=== PATIENT | male | born 1985 | race Hispanic/Latino ===

== ENCOUNTER 2020-03-02 03:01 | Outpatient (CLI) | payer BC, SELFPAY ==
[2020-03-02 18:16] LABS: SARS-CoV-2 RNA PCR Negative
== END 2020-03-02 03:02 | disposition home or self-care (01) ==
LOC: ANHCOVIDDT 03:01
PROVIDERS: PCP Family Medicine; Visit Provider Internal Medicine Gastroenterology
DX: Z01.812 Encounter for preprocedural laboratory examination (principal); Z20.828 Contact with and (suspected) exposure to other viral communicable diseases
CPT/HCPCS: 87635; C9803; U0003

== ENCOUNTER 2020-03-04 00:11 | Day surgery (SDC) | payer BC, SELFPAY ==
[2020-02-26 14:40] VITALS: BMI 34.7
[2020-03-04] MEDS: LACTATED RINGERS 1,000 ML 150 ML IV CONT (07:58)
--- NOTE | 2020-03-04 07:58 | P.HP_ITS ---
History of Present Illness History of Present Illness Consent: Risks, benefits, and alternatives have been discussed and questions answered. Patient agrees to proceed with procedure. Chief complaint: fm hx colon ca Narrative: Miah Palumbo is a 34 year old W male referred for screening colonoscopy secondary to family history of colon cancer in his mother was diagnosed at age 44. Patient is asymptomatic. Both grandmothers had ovarian cancer. He states that the stories aware with mother did not have genetic testing has had may be worthwhile for her to contact her doctor regards to this. His sister also had polyps. [facility] Past Medical History Medical History ADD (attention deficit disorder) without hyperactivity Aortic valve regurgitation, nonrheumatic Bradycardia Essential hypertension Hypersomnia Murmur, cardiac ADAM (obstructive sleep apnea) Surgical History Surgical History History of knee surgery Family History Family History (Updated 04/29/18 @ 12:50 by DOCTOR UNKNOWN) Father Hypertension Mother Carcinoma of colon Grandparent Carcinoma of colon Family history of Hodgkin's lymphoma Social History Social History Social History: Smoking status: Never smoker Tobacco type: cigarettes Second hand tobacco smoke exposure: No Smoking end date: 05/28/16 Alcohol intake: unknown Drinks per week: 1 Substance use: never Substance use type: does not use Living arrangements: with family Gender identity (if verbalized by the patient): Male Spiritual care concerns: No Meds Home Medications and Allergies Home Medications Medication Instructions Recorded Confirmed Type lisinopril 10 mg tablet 10 mg PO DAILY #90 tablet 11/25/19 02/26/20 Rx dextroamphetamine-amphetamine ER 25 mg PO DAILY #30 cap 02/04/20 02/26/20 Rx 25 mg 24hr capsule,extend release Allergies Allergy/AdvReac Type Severity Reaction Status Date / Time morphine Allergy Unknown Hives Verified 11/25/19 16:09 Exam Const: Orientation/consciousness: patient oriented x3 Resp: Auscultation: clear to auscultation bilaterally Cardio: Rate: regular rate Rhythm: regular rhythm Heart sounds: no murmurs GI: GI Palp: Yes Soft to palpation, No Tenderness to palpation present (GI), Yes No hepatosplenomegaly present and No Palpable mass present Auscultation: normal bowel sounds Neuro: General: patient oriented x3 and no focal motor deficits Extrem: General: no pedal edema Assessment and Plan Additional Plan Screening colonoscopy secondary family history of colon cancer mother diagnosed at age 44
--- NOTE | 2020-03-04 08:45 | WPDANESEPPF ---
Anes - Initial Pre Proc Eval Procedure: Operation Date: 03/04/20 09:00 Proposed Procedures p Screening Colonoscopy - Isauro Walters MD Date/Time: 03/04/20 08:45 Surgeon: Isauro Walters MD Pre Op Diagnosis: fm hx colon ca Patient Data Age: 34 Gender: M Height: 6 ft Weight: 116 kg Allergies Allergy/AdvReac Type Severity Reaction Status Date / Time morphine Allergy Unknown Hives Verified 11/25/19 16:09 Home Medications Medication Instructions Recorded Confirmed Type lisinopril 10 mg tablet 10 mg PO DAILY #90 tablet 11/25/19 02/26/20 Rx dextroamphetamine-amphetamine ER 25 mg PO DAILY #30 cap 02/04/20 02/26/20 Rx 25 mg 24hr capsule,extend release Patient hx anesthesia problems: none Family hx anesthesia problems: none PMFSH Past Medical History Medical History ADD (attention deficit disorder) without hyperactivity Aortic valve regurgitation, nonrheumatic Bradycardia Essential hypertension Hypersomnia Murmur, cardiac ADAM (obstructive sleep apnea) Surgical History Surgical History History of knee surgery Family History Family History (Updated 04/29/18 @ 12:50 by DOCTOR UNKNOWN) Father Hypertension Mother Carcinoma of colon Grandparent Carcinoma of colon Family history of Hodgkin's lymphoma Social History Social History Social History: Smoking status: Never smoker Tobacco type: cigarettes Second hand tobacco smoke exposure: No Smoking end date: 05/28/16 Alcohol intake: unknown Drinks per week: 1 Substance use: never Substance use type: does not use Gender identity (if verbalized by the patient): Male Spiritual care concerns: No Anes - Eval Final PreProcedure Day of Procedure 03/04/20 08:45 Patient weight: overweight Heart: regular rate and rhythm Lungs: clear to auscultation Airway: Mallampati scale class II Neurological: alert and oriented Last oral intake: >/= 8 hours ASA classification: III Emergent: no Anesthetic plan: proceed Anesthesia type and monitoring: general GIVS and standard monitoring Informed Consent: The patient's anesthetic plan and its attendant risks and benefits were discussed with the patient/family/POA. Questions were solicited and answers provided to the satisfaction of the patient/family/POA.
[2020-03-04 09:57] VITALS: BP 99/59; PULSE 77; RESP 18; O2SAT 95
[2020-03-04 10:07] VITALS: BP 112/68; PULSE 60; RESP 16; O2SAT 96
[2020-03-04 10:17] VITALS: BP 118/63; PULSE 52; RESP 18; O2SAT 99
== END 2020-03-04 10:40 | disposition home or self-care (01) ==
PROVIDERS: PCP Family Medicine; Visit Provider Internal Medicine Gastroenterology
PROC: 0DJD8ZZ Inspection of Lower Intestinal Tract, Via Natural or Artificial Opening Endoscopic (ICD-10-PCS; CPT 45378; principal; 2020-03-04 09:00)
DX: Z12.11 Encounter for screening for malignant neoplasm of colon (principal); D12.3 Benign neoplasm of transverse colon; I35.1 Nonrheumatic aortic (valve) insufficiency; R00.1 Bradycardia, unspecified; I10 Essential (primary) hypertension; G47.33 Obstructive sleep apnea (adult) (pediatric); Z80.0 Family history of malignant neoplasm of digestive organs; Z83.71 Family history of colonic polyps; Z80.41 Family history of malignant neoplasm of ovary; K64.8 Other hemorrhoids
CPT/HCPCS: 45385; 88305; J2704; J7120

== ENCOUNTER 2020-03-05 13:33 | Outpatient (CLI) | payer BC, SELFPAY ==
--- NOTE | 2020-03-05 14:19 | ECG_ITS ---
Measurements Intervals [place] Rate: 65 P: 35 [place]: 187 QRS: -7 QRSD: 115 T: 31 QT: 396 QTc: 412 Interpretive Statements SINUS RHYTHM WITH SINUS ARRHYTHMIA INTRAVENTRICULAR CONDUCTION DELAY BORDERLINE ECG Electronically Signed On 03-05-2020 14:37:04 CDT by Jose Rubin D.O.
--- NOTE | 2020-03-05 14:47 | ECHO_ITS ---
Patient Info Name: Miah Palumbo Age: 34 years : 1985 Gender: Male Ht: 72 in Wt: 260 lbs BSA: 2.49 m2 HR: 54 bpm BP: 137 / 76 mmHg Technical Quality: Good Exam Date: 03/05/2020 2:52 PM Exam Location: [facility] Pulmonary Patient Status: Outpatient Admit Date: 03/05/2020 Staff Ordering Physician: Jose Rubin DO Bulk Clerk: Divina Masters RDCS Attending Provider: Jose Rubin DO Referring Physician: Scottie ANTONIO; Exam Type: CA echo doppler color flow Study Info Indications I35.1 - Nonrheumatic aortic (valve) insufficiency Complete two-dimensional, color flow and Doppler transthoracic echocardiogram is performed. Summary 1. Complete two-dimensional, color flow and Doppler transthoracic echocardiogram is performed. 2. Left ventricular chamber dimension is moderately enlarged. 3. Left ventricular systolic function is normal, estimated at 55-60%. 4. The left ventricular diastolic function is normal. 5. E/e' 5 is not elevated. 6. Left atrial chamber dimension is mildly enlarged. 7. There is mild aortic valve sclerosis. 8. There is moderate aortic valve regurgitation. AI Pt1/2 623 ms. 9. There is trace mitral valve regurgitation. 10. No pulmonary hypertension, estimated pulmonary arterial systolic pressure is 29 mmHg. 11. There is trace pulmonic regurgitation. Left Ventricle E/e' 5 is not elevated. Left ventricular chamber dimension is moderately enlarged. Left ventricular systolic function is normal, estimated at 55-60%. The left ventricular diastolic function is normal. Right Ventricle Right ventricular chamber dimension is normal. Right ventricular systolic function is normal. Left Atria Left atrial chamber dimension is mildly enlarged. Right Atria Right atrial chamber dimension is normal. Aortic Valve There is moderate aortic valve regurgitation. AI Pt1/2 623 ms. The aortic valve is trileaflet. There is mild aortic valve sclerosis. There is no aortic valve stenosis. Pulmonic Valve There is trace pulmonic regurgitation. Mitral Valve There is no mitral valve stenosis. There is trace mitral valve regurgitation. Tricuspid Valve There is no tricuspid valve regurgitation. No pulmonary hypertension, estimated pulmonary arterial systolic pressure is 29 mmHg. Pericardium/Pleural There is no pericardial effusion. Inferior Vena Cava Normal inferior vena cava with >50% collapse upon inspiration consistent with normal right atrial pressure, 5 mmHg. Aorta The aortic root size at the sinus of Valsalva is normal. Left Ventricular Outflow Tract Name Value Normal LVOT 2D LVOT Diameter 2.1 cm LVOT Doppler LVOT Peak Gradient 5 mmHg LVOT Mean Gradient 3 mmHg LVOT VTI 25 cm LVOT VTI/AV VTI Ratio 0.9 LVOT Stroke Volume 87 ml LVOT CO 17.9 l/min LVOT CI 7.2 l/min/m2 Pulmonic Valve Nam
== END 2020-03-05 13:34 | disposition home or self-care (01) ==
PROVIDERS: PCP Family Medicine; Visit Provider Internal Medicine Cardiovascular Disease
DX: I35.1 Nonrheumatic aortic (valve) insufficiency (principal); R01.1 Cardiac murmur, unspecified
CPT/HCPCS: 93005; 93306

== ENCOUNTER 2021-01-10 14:36 | Outpatient (CLI) | payer BC, SELFPAY ==
--- NOTE | 2021-01-10 | ECHO_ITS ---
Patient Info Name: Miah Palumbo Age: 35 years : 1985 Gender: Male Ht: 72 in Wt: 260 lbs BSA: 2.49 m2 HR: 70 bpm BP: 144 / 82 mmHg Heart Rhythm: Sinus Rhythm Exam Date: 01/10/2021 3:13 PM Exam Location: [facility] Patient Status: Outpatient Admit Date: 01/10/2021 Staff Ordering Physician: Jose Rubin DO Sales Operations Associate: Lilian Stevens RDCS Attending Provider: Jose Rubin DO Exam Type: CA echo doppler color flow Study Info Indications I35.8 - Other nonrheumatic aortic valve disorders Complete two-dimensional, color flow and Doppler transthoracic echocardiogram is performed. Summary 1. Complete two-dimensional, color flow and Doppler transthoracic echocardiogram is performed. 2. Left ventricular chamber dimension is normal. 3. Left ventricular systolic function is normal, estimated at 60-65%. 4. The left ventricular diastolic function is grade II diastolic dysfunction. 5. E/e' 7 is not elevated. 6. Left atrial chamber dimension is mildly enlarged. 7. There is mild aortic valve sclerosis. 8. There is mild aortic valve regurgitation. 9. There is trace tricuspid valve regurgitation. Left Ventricle E/e' 7 is not elevated. Left ventricular chamber dimension is normal. Left ventricular systolic function is normal, estimated at 60-65%. The left ventricular diastolic function is grade II diastolic dysfunction. Right Ventricle Right ventricular chamber dimension is normal. Right ventricular systolic function is normal. Left Atria Left atrial chamber dimension is mildly enlarged. Right Atria Right atrial chamber dimension is normal. Aortic Valve The aortic valve is trileaflet. There is mild aortic valve sclerosis. There is no aortic valve stenosis. There is mild aortic valve regurgitation. Pulmonic Valve There is no pulmonic regurgitation. Mitral Valve There is no mitral valve stenosis. There is no mitral valve regurgitation. Tricuspid Valve There is trace tricuspid valve regurgitation. RVSP is not calculated due to an inadequate TR jet. Pericardium/Pleural There is no pericardial effusion. Inferior Vena Cava Normal inferior vena cava with >50% collapse upon inspiration consistent with normal right atrial pressure, 5 mmHg. Aorta The aortic root size at the sinus of Valsalva is normal. Left Ventricular Outflow Tract Name Value Normal LVOT 2D LVOT Diameter 2.5 cm LVOT Doppler LVOT Peak Gradient 6 mmHg LVOT Mean Gradient 3 mmHg LVOT VTI 26 cm LVOT VTI/AV VTI Ratio 0.7 LVOT Stroke Volume 129 ml LVOT CO 7.7 l/min LVOT CI 3.1 l/min/m2 Pulmonic Valve Name Value Normal RVOT Doppler RVOT Peak Gradien
== END 2021-01-10 14:37 | disposition home or self-care (01) ==
LOC: ANHCARD 14:37
PROVIDERS: PCP Family Medicine; Visit Provider Internal Medicine Cardiovascular Disease
DX: I35.1 Nonrheumatic aortic (valve) insufficiency (principal)
CPT/HCPCS: 93306

== ENCOUNTER → 2021-02-02 07:35 | Outpatient (CLI) | payer BC, SELFPAY ==
--- NOTE | ~2021-02-02 | MR_ITS ---
EXAMINATION: MR knee RT wo con DATE: 02/02/2021 08:20 INDICATION: Right knee pain. TECHNIQUE: Magnetic resonance imaging (MRI) of the right knee was performed without intravenous contr ast. Sequences included axial PD-weighted FS FSE, coronal PD-weighted FSE and PD-weighted FS FSE, sag ittal PD-weighted FSE, and sagittal T2-weighted FS FSE. COMPARISON: Right knee radiographs 01/20/2021 FINDINGS: Medial compartment: Medial meniscus is normal. There is shallow partial-thickness cartilage loss of tibial condyle and fe moral condyle. Marginal osteophytes are noted. Lateral compartment: There is an upper surface horizontal tear of lateral meniscus at the junction of the body and anterio r horn. There is shallow partial-thickness cartilage loss of tibial condyle, worst at the central art icular surface. There is shallow partial-thickness cartilage loss of femoral condyle, worst at the po sterior articular surface. There are tiny marginal osteophytes. Patellofemoral compartment: There is deep cartilage fissuring of patellar median ridge with mild subchondral edema-like marrow si gnal intensity. There is deep partial thickness cartilage loss of lateral and central trochlea with m ild subchondral edema-like marrow signal intensity. Ligaments and tendons: There are changes of anterior cruciate ligament reconstruction with intact graft. Posterior cruciate ligament is normal. There are changes of prior sprains of medial collateral ligament and fibular sunitha ateral ligament characterized by increased signal intensity proximally. There is a graft donor site i nvolving the middle third of the patellar tendon. Fluid: There is a small knee joint effusion. There is mild superficial infrapatellar bursitis. IMPRESSION: 1. Moderate chondrosis of patellofemoral compartment and mild chondrosis of medial and lateral compar tments. 2. Tear of lateral meniscus. 3. Intact anterior cruciate ligament reconstruction. 4. Small knee joint effusion. Reviewed, dictated and finalized at location A. IMPRESSION: 1. Moderate chondrosis of patellofemoral compartment and mild chondrosis of med ial and lateral compartments. 2. Tear of lateral meniscus. 3. Intact anterior cruciate ligament reconstruction. 4. Small knee joint effusion.
== END ==
PROVIDERS: PCP Family Medicine; Visit Provider Orthopaedic Surgery
DX: M25.561 Pain in right knee (principal); S83.206A Unspecified tear of unspecified meniscus, current injury, right knee, initial encounter; M25.461 Effusion, right knee
CPT/HCPCS: 73721

== ENCOUNTER 2021-03-30 00:18 | Day surgery (SDC) | payer BC, SELFPAY ==
[2021-03-25 09:26] VITALS: BMI 35.5
[2021-03-30] VITALS (10 sets, daily range): BP systolic 109–140; BP diastolic 66–85; PULSE 51–83; RESP 14–18; TEMP 36.3–36.5; O2SAT 95–100
--- NOTE | 2021-03-30 10:36 | WPDHPUPDATE1 ---
History and Physical Update Update Date/Time: 03/30/21 10:36 History and Physical has been reviewed, including an updated exam of the patient. There are NO changes in the patient's condition. Risks, benefits, and alternatives have been discussed and questions answered. Patient agrees to proceed with procedure.
--- NOTE | 2021-03-30 10:37 | PM.IMHP ---
H&P: HPI History of Present Illness Date/Time: 03/30/21 10:37Pt is here for a R knee evaluation for pain. He had a R knee reconstruction (used his patellar tendon to repair ACL) in 2005 at [facility] in [place]. They had to do a clean-up in 2006 due to scleroderma. The surgeries resulted in him not getting back to 180 degrees of flexion. Pt states that he hasn't had any major issues until the past few months. No VIKRAM. Pt states that he has been training for a 5K and his knee has started to hurt constantly. It swells after prolonged activity. The pain is dull/sharp and feels like it is inside his knee. Due to the angle of his knee and the pain his gait has been affected. He uses braces as needed during activity. He RICEs and takes Advil as needed for pain. MRI completed 02/02/21. Involved knee: right Location of pain: lateral, anterior and diffuse Character: stabbing, dull ache and other (achy) Timing of pain: constant Exacerbated by: sitting, weight bearing, rotational activities and prolonged activity Relieved by: brace, elevation, ice and NSAIDs (advil) Associated symptoms: Reports clicking History of occupational/recreational activity with repetitive motion: Yes History of prior knee injury: Yes (ACL 2005) Prior treatment: surgery Procedure: ACL repair with patellar tendon Chief Complaint: RIGHT KNEE PAIN Review of Systems Review of Systems: All systems reviewed & are unremarkable except as noted in HPI and below PMFSH Past Medical History Medical History ADD (attention deficit disorder) without hyperactivity Aortic valve regurgitation, nonrheumatic Bradycardia Essential hypertension Hypersomnia Murmur, cardiac ADAM (obstructive sleep apnea) Surgical History Surgical History History of colonoscopy 2020 History of knee surgery History of right knee surgery 2005 and 2006. ACL reconstruction and clean up. 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 [employer] Gender identity (if verbalized by the patient): Male Sexual Orientation (if Verbalized by the Patient): Straight or Heterosexual Spiritual care concerns: No Meds Home Medications and Allergies Home Medications Medication Instructions Recorded Confirmed Type azelastine 137 mcg (0.1 %) nasal 1 spray INTRANASAL Q12H #30 ml 08/20/20 03/25/21 Rx spray aerosol fluticasone propionate 50 1 spray INTRANASAL Q12H #18.2 ml 08/20/20 03/25/21 Rx mcg/actuation nasal spray,suspension lisinopril 10 mg tablet 10 mg PO DAILY #90 tablet 02/11/21 03/25/21 Rx chlorhexidine gluconate 4 % 1 applic TOPICAL ONCE #237 ml 02/15/21 03/25/21 Rx topical liquid mecobalamin (vitamin B12) 1,000 1,000 mcg PO DAILY 03/11/21 03/25/21 History mcg chewable tablet dextroamphetamine-amphetamine ER 25 mg PO DAILY #30 cap 03/16/21 03/25/21 Rx 25 mg 24hr capsule,extend release Allergies Allergy/AdvReac Type Severity Reaction Status Date / Time morphine Allergy Unknown Hives Verified 03/25/21 09:24 Exam Const: Orientation/consciousness: patient oriented x3 Resp: Auscultation: clear to auscul
--- NOTE | 2021-03-30 12:30 | WPDANESEPPF ---
Anes - Initial Pre Proc Eval Procedure: Operation Date: 03/30/21 14:30 Proposed Procedures p Right Knee Arthroscopy - Varghese Gomez MD Date/Time: 03/30/21 12:30 Surgeon: Varghese Gomez MD Pre Op Diagnosis: Rt Knee Lateral Meniscus Tear Patient Data Age: 35 Gender: M Height: 1.83 m Weight: 118.84 kg Allergies Allergy/AdvReac Type Severity Reaction Status Date / Time morphine Allergy Unknown Hives Verified 03/30/21 12:43 Home Medications Medication Instructions Recorded Confirmed Type azelastine 137 mcg (0.1 %) nasal 1 spray INTRANASAL Q12H #30 ml 08/20/20 03/30/21 Rx spray aerosol fluticasone propionate 50 1 spray INTRANASAL Q12H #18.2 ml 08/20/20 03/30/21 Rx mcg/actuation nasal spray,suspension lisinopril 10 mg tablet 10 mg PO DAILY #90 tablet 02/11/21 03/30/21 Rx chlorhexidine gluconate 4 % 1 applic TOPICAL ONCE #237 ml 02/15/21 03/30/21 Rx topical liquid mecobalamin (vitamin B12) 1,000 1,000 mcg PO DAILY 03/11/21 03/30/21 History mcg chewable tablet dextroamphetamine-amphetamine ER 25 mg PO DAILY #30 cap 03/16/21 03/30/21 Rx 25 mg 24hr capsule,extend release Patient hx anesthesia problems: none Family hx anesthesia problems: none Results Review: All pre-operative results and documents have been reviewed as part of the pre-operative evaluation. [facility] Past Medical History Medical History (Updated 03/30/21 @ 12:31 by Ted Jane MD) ADD (attention deficit disorder) without hyperactivity Aortic valve regurgitation, nonrheumatic Bradycardia Essential hypertension Hypersomnia Murmur, cardiac Obesity (BMI 35.0-39.9 without comorbidity) ADAM (obstructive sleep apnea) Sleep apnea Surgical History Surgical History History of colonoscopy 2020 History of knee surgery History of right knee surgery 2005 and 2006. ACL reconstruction and clean up. 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 [employer] Gender identity (if verbalized by the patient): Male Sexual Orientation (if Verbalized by the Patient): Straight or Heterosexual Spiritual care concerns: No Anes - Eval Final PreProcedure Day of Procedure 03/30/21 12:30 Patient weight: obese Heart: regular rate and rhythm Lungs: clear to auscultation and normal air movement Airway: Mallampati scale class II Neurological: alert and oriented Last oral intake: >/= 8 hours ASA classification: III Emergent: no Anesthetic plan: proceed Anesthesia type and monitoring: general LMA Results Review: All pre-operative results and documents have been reviewed as part of the pre-operative evaluation. Informed Consent: The patient's anesthetic plan and its attendant risks and benefits were discussed with the patient/family/POA. Questions were solicited and answers provided to the satisfaction of the patient/family/POA.
[2021-03-30] MEDS: ACETAMINOPHEN 500 MG TABLET 1000 MG PO (12:57)
[2021-03-30] MEDS: LACTATED RINGERS 1,000 ML 30 ML IV CONT (13:00)
[2021-03-30] MEDS: CELECOXIB 200 MG CAPSULE PO (13:04)
[2021-03-30] MEDS: ceFAZolin 2 GM/D5W 50 ML 2 GM/50 ML BAG IVPB (13:32)
[2021-03-30] MEDS: BUPIVACAINE HCL 0.25% PF 30 ML VIAL INFILTRATE (13:55)
--- NOTE | 2021-03-30 15:08 | W.PM.PROC2 ---
Procedure Note - Detailed Date of Procedure 03/30/21 Pre-op Diagnosis Rt Knee Lateral Meniscus Tear Post-op Diagnosis same Procedure Performed RIGHT KNEE SCOPE Surgeon Varghese Gomez MD Anesthesia general Description of Procedure PATIENT WAS TAKEN TO THE OPERATING ROOM SUITE. ANESTHESIA WAS INDUCED. THE RIGHT LEG WAS PREPPED AND DRAPED STERILE. TROCARS WERE PLACED IN TO THE KNEE JOINT IN THE USUAL FASHION. THE CAMERA WAS INTRODUCED. THERE WAS MODERATE CHONDROMALACIA TO THE PATELLA FEMORAL JOINT. THERE WAS A LOT OF SYNOVITIS IN ALL COMPARTMENTS. THE MEDIAL COMPARTMENT SHOWED NO CHONDROMALACIA TO THE MEDIAL FEMORAL CONDYLE OR PLATEAU. THERE WAS NO MEDIAL MENISCUS TEAR. THE ACL WAS INTACT. THERE WAS A CHONDRAL BODY ATTACHED TO THE SYNOVIUM OF THE ACL AND THIS WAS REMOVED. THE ENTIRE ACL WAS VISUALIZED AND IT WAS INTACT AND STABLE TO AN ANTERIOR DRAWER TEST. THE LATERAL MENISCUS WAS TORN AT THE ANTERIOR HORN AND EXTENDED TO THE MID ANTERIOR HORNS. THE TEAR WAS CONFINED TO THE WHITE ZONE AND WAS A COMPLEX TEAR. THE TEAR WAS RESECTED. THE LATERAL COMPARTMENT HAD NO CHONDROMALACIA AT THE LATERAL PLATEAU OR LATERAL FEMORAL CONDYLE. A SYNOVECTOMY WAS PREFORMED. THE PATELLO FEMORAL JOINT UNDERWENT CHONDROPLASTY OVER THE PATELLA AND TROCHLEA. THERE WAS GRADE 2 CHONDROMALACIA IN A SMALL SECTION OF THE OF THE PATELLA AND GRADE 3 IN THE TROCHLEA. SYNOVECTOMY WAS PREFORMED IN THE SUPERIOR MEDIAL COMPARTMENT. THE WOUNDS WERE APPROXIMATED WITH 4.0 NYLON. STERILE DRESSING WAS APPLIED. PATIENT WAS EXTUBATED. Estimated Blood Loss 5 Complications No immediate complications Condition stable Disposition PACU
[2021-03-30] MEDS: fentaNYL CITRATE INJ (*CRX) 100 MCG/2 ML VIAL 25 MCG IV PUSH (15:16)
[2021-03-30] MEDS: ONDANSETRON INJ 4 MG/2 ML VIAL IV PUSH (15:36)
== END 2021-03-30 16:52 | disposition home or self-care (01) ==
PROVIDERS: PCP Physician Assistant; Visit Provider Orthopaedic Surgery
PROC: (CPT 29870; principal; 2021-03-30 14:30)
DX: M23.241 Derangement of anterior horn of lateral meniscus due to old tear or injury, right knee (principal); M65.861 Other synovitis and tenosynovitis, right lower leg; M94.261 Chondromalacia, right knee; F98.8 Other specified behavioral and emotional disorders with onset usually occurring in childhood and adolescence; I35.1 Nonrheumatic aortic (valve) insufficiency; I10 Essential (primary) hypertension; G47.33 Obstructive sleep apnea (adult) (pediatric); E66.9 Obesity, unspecified; Z68.34 Body mass index [BMI] 34.0-34.9, adult
CPT/HCPCS: 29881; A9270; J0690; J2250; J2405; J2704; J3010; J7120

== ENCOUNTER 2021-10-28 11:04 | Emergency (ER) | payer BC, SELFPAY ==
--- NOTE | ~2021-10-28 | XR_ITS ---
XR lumbar spine 2-3V 10/28/2021 12:30 Indication: Low back pain Procedure: 3 views lumbar spine Comparison: No prior studies for comparison. Findings: There is mild facet degenerative change at L4-5 and L5-S1. There is mild disc narrowing at L4-5 and L5-S1. No acute fracture or traumatic malalignment. No evidence for spondylolisthesis. There is subcutaneous gas in the superficial soft tissues posterior to the lumbar spine and sacrum. Impression: 1: Mild lumbar spondylosis. 2: Mottled soft tissue gas in the posterior subcutaneous tissues overlying the lower back and sacrum. Consider cellulitis in the appropriate clinical setting. Correlate for point tenderness. Reviewed, dictated and finalized at location A. Impression: 1: Mild lumbar spondylosis. 2: Mottled soft tissue gas in the posterior subcutaneous tissues overlying the lower back and sacrum. Consider cellulitis in the appropriate clinical setting. Correlate for point tenderness.
[2021-10-28 11:09] VITALS: BP 120/72; PULSE 84; RESP 20; TEMP 37.3; O2SAT 98
[2021-10-28] MEDS: HYDROcodone/acetaminophen (*CRX) 10-325 MG TABLET 1 TAB PO (11:42)
[2021-10-28] MEDS: KETOROLAC 30 MG/ML VIAL (*BKC) IM (11:42)
[2021-10-28] MEDS: CYCLOBENZAPRINE HCL 10 MG TABLET PO (11:42)
--- NOTE | 2021-10-28 11:57 | ED.BACK ---
HPI - Back Pain/Injury General Chief Complaint: Back Pain/Injury Stated Complaint: back pain Time Seen by Provider: 10/28/21 11:09 History of Present Illness HPI Narrative: 35-year-old male presented to the emergency department for evaluation of low back pain that has been persistent for approximately past 2 weeks. Patient states he does have prior history of knee pain and due to his abnormal gait he has developed a history of lower back pain. Patient denies any specific incident of injury. Patient denies any falls. Patient denies any pain after lifting. Patient states that he has had progressively worsening lower back pain. Patient has been following up with his chiropractor and while he was doing stretches he had worsening lower back spasms. Patient did receive steroid injection, also injection, acupuncture, lidocaine patch and ice therapy. Patient states due to his spasms he has had decreased mobility. Patient denies any associated numbness or weakness. Patient denies any incontinence of stool. Patient denies any difficulty starting urination. Patient does have history of back pain but denies any prior surgical history. Related Data Home Medications Medication Instructions Recorded Confirmed mecobalamin (vitamin B12) 1,000 1,000 mcg PO DAILY 03/11/21 04/14/21 mcg chewable tablet Allergies Allergy/AdvReac Type Severity Reaction Status Date / Time morphine Allergy Unknown Hives Verified 10/28/21 11:15 Review of Systems Review of Systems: CONSTITUTIONAL: Denies fever, chills, or sweats. EYES: Denies visual changes, redness, or discharge. ENT: Denies rhinorrhea, congestion, sore throat, or otalgia. CARDIOVASCULAR: Denies chest pain, palpitations, or edema. RESPIRATORY: Denies cough or dyspnea. GASTROINTESTINAL: Denies abdominal pain, nausea, vomiting, or diarrhea. GENITOURINARY: Denies dysuria or hematuria. SKIN: Denies rash or itching. MUSCULOSKELETAL: See HPI NEUROLOGIC: Denies headache, numbness, or weakness. [facility] Past Medical History Medical History ADD (attention deficit disorder) without hyperactivity Aortic valve regurgitation, nonrheumatic Bradycardia Essential hypertension Hypersomnia Murmur, cardiac Obesity (BMI 35.0-39.9 without comorbidity) ADAM (obstructive sleep apnea) Sleep apnea Surgical History Surgical History History of colonoscopy 2020 History of knee surgery History of right knee surgery 2005 and 2006. ACL reconstruction and clean up. 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 HEAD: normocephalic, atraumatic. EYES: PERRLA/EOMI, conjunctivae clear. NOSE: Normal no drainage NECK: Supple. No adenopathy, no masses. RESPIRATORY: Airway patent, respirations nonlabored. Clear to auscultation bilaterally, no rales, rhonchi, wheezing. CARDIOVASCULAR: Regular rate and rhythm without murmurs rubs
[2021-10-28 13:18] VITALS: BP 136/80; PULSE 80; RESP 16; TEMP 36.8; O2SAT 100
== END 2021-10-28 13:20 | disposition home or self-care (01) ==
PROVIDERS: Emergency Provider Emergency Medicine; PCP Family Medicine
DX: M54.50 Low back pain, unspecified (principal); I10 Essential (primary) hypertension; Z87.891 Personal history of nicotine dependence
CPT/HCPCS: 72100; 96372; 99283; A9270; J1885

== ENCOUNTER → 2023-05-03 09:51 | Outpatient (CLI) | payer OTHER, SELFPAY ==
--- NOTE | ~2023-05-03 | MR_ITS ---
MRI of the left knee Clinical history: Pain Technique: Coronal proton density and proton density-weighted images, sagittal proton-density and T2 fat-sat images, and axial proton-density fat-saturated images were acquired. Findings: There is a high-grade, probable complete tear at the proximal to midportion of the ACL. Pos terior cruciate ligament is intact. Medial collateral ligament and the lateral collateral ligament co nflux are intact. Popliteus tendon is intact. There are transchondral impaction injuries at the central aspect of the lateral femoral condyle and p osterolateral tibial plateau, consistent with recent pivot shift injury. Articular cartilage otherwis e is well preserved in the. Medial and lateral menisci are intact, without evidence of tear. Extensor mechanism is intact. Minimal joint effusion present. No Wei's cyst. Impression: Acute high-grade, probable complete ACL tear, as above. Transchondral impaction injuries at the central aspect of the lateral femoral condyle and posterolate ral tibial plateau, consistent with recent pivot shift injury. Reviewed, dictated and finalized at location . C WORKER Impression: Acute high-grade, probable complete ACL tear, as above. Transchondral impaction injuries at the central aspect of the lateral femoral c ondyle and posterolateral tibial plateau, consistent with recent pivot shift in jury.
== END ==
PROVIDERS: PCP Orthopaedic Surgery; Visit Provider Nurse Practitioner Family
DX: S89.82XA Other specified injuries of left lower leg, initial encounter (principal); X58.XXXA Exposure to other specified factors, initial encounter
CPT/HCPCS: 73721